=== PATIENT | female | born 1975 | race Caucasian/White ===

== ENCOUNTER 2025-01-30 19:52 | Emergency (ER) | payer SELFPAY ==
[~2025-01-30] VITALS: Ht 167.6 cm; Wt 93.0 kg
[2025-01-30] MEDS ORDERED: HYDROcodone 7.5-APAP 325 TAB PO ONE (22:20)
== END 2025-01-30 23:15 | disposition home or self-care (01) ==
LOC: ER 19:52
DX: S52.122A Displaced fracture of head of left radius, initial encounter for closed fracture (principal); W01.0XXA Fall on same level from slipping, tripping and stumbling without subsequent striking against object, initial encounter
CPT/HCPCS: 73060; 73070; 73090; 99283-25; A9270